=== PATIENT | male | born 1960 | race Caucasian/White ===

== ENCOUNTER → 2019-05-19 | Outpatient (CLI) | payer BC, OTHER ==
--- NOTE | 2019-05-19 16:54 | RAD ---
Examination: 2 views of the lumbar spine and 2 views of the left hip HISTORY: History of low back pain, left hip pain COMPARISON: 06/07/2012 FINDINGS: The lumbar vertebral body heights are maintained. Mild intervertebral disc height loss identified in the lumbar spine. Moderate facet degenerative changes identified. Moderate intervertebral disc height loss identified at L5-S1 vertebral level. Minimal anterolisthesis of L4 on L5 identified. There is severe joint space loss identified in the left hip joint with sclerotic changes identified in the left acetabulum. Mild deformed appearance of the left femoral head. Moderate facet degenerative changes. IMPRESSION: 1. Severe degenerative changes left hip joint. 2. Moderate degenerative changes lumbar spine. Electronically signed by: Francisco Junior MD (05/19/2019 4:51 PM) [facility]
== END | disposition home or self-care (01) ==
LOC: RAD 13:04
PROVIDERS: ATTEND Family Medicine
DX: M16.12 Unilateral primary osteoarthritis, left hip (principal); M47.816 Spondylosis without myelopathy or radiculopathy, lumbar region; M54.40 Lumbago with sciatica, unspecified side
CPT/HCPCS: 72100; 73502

== ENCOUNTER → 2019-10-17 | Outpatient (CLI) | payer BC, OTHER ==
[~2019-10-17] MED LIST: CHOL200078 PO; LISI10TA2 PO; MULT-730 PO; NAPR-600 PO; OMEG10005 PO
[2019-10-17 10:58] LABS: BASO # 0.1 x10^3/uL (0.0-0.2); BASO % 1 % (0-3); EOS # 0.2 x10^3/uL (0.0-0.7); EOS % 2 % (0-3); HEMATOCRIT 40.6 % (39.0-53.0); HEMOGLOBIN 13.5 g/dL (13.0-17.5); LYMPH # 1.4 x10^3/uL (1.0-4.8); LYMPH % 17 % (24-48); MEAN CORPUSCULAR HEMOGLOBIN 32 pg (25-35); MEAN CORPUSCULAR HGB CONC 33 g/dL (31-37); MEAN CORPUSCULAR VOLUME 96 fL (79-100); MONO # 0.9 x10^3/uL (0.0-1.1); MONO % 11 % (0-9); NEUT # 5.4 x10^3/uL (1.8-7.7); NEUT % 69 % (31-73); PLATELET COUNT 332 x10^3/uL (140-400); RED BLOOD COUNT 4.25 x10^6/uL (4.30-5.70); RED CELL DISTRIBUTION WIDTH 13.3 % (11.5-14.5); WHITE BLOOD COUNT 7.9 x10^3/uL (4.0-11.0)
--- NOTE | 2019-10-17 11:08 | EKG ---
[facility] [address] [place] [address] Test Date: 2019-10-17 Test Time: 10:48:04 Pat Name: FATUMA CEDEÑO Department: Room: Gender: M Manager Insurance: : [id number] Requested By: NAOMIE SLATER Order Number: [id number] Reading MD: Wes Bowen Measurements Intervals [place] Rate: 65 P: 34 CA: 170 QRS: 24 QRSD: 90 T: 29 QT: 380 QTc: 396 Interpretive Statements SINUS RHYTHM MILD NONSPECIFIC ST-T WAVE CHANGES. RI6.01 Compared to ECG 05/23/2012 17:08:01 No significant changes Electronically Signed On 10-17-2019 11:54:54 [employer]PA[employer] by Wes Bowen
[2019-10-17 11:12] LABS: PROTHROMBIN TIME PATIENT 13.4 SEC (11.7-14.0)
[2019-10-17 11:15] LABS: CALCIUM 8.7 mg/dL (8.5-10.1); CREATININE 0.9 mg/dL (0.7-1.3); GFR 86.1; POTASSIUM 4.8 mmol/L (3.5-5.1)
--- NOTE | 2019-10-17 12:38 | RAD ---
EXAM: Chest, 2 views. HISTORY: Preoperative evaluation. Pain. COMPARISON: None. FINDINGS: 2 views of the chest are obtained. There is no infiltrate, pleural effusion or pneumothorax. The heart is normal in size. IMPRESSION: No acute pulmonary finding. Electronically signed by: Spring Mata MD (10/17/2019 12:35 PM) [facility] [place]
[2019-10-18 01:08] LABS: HEMOGLOBIN A1C 5.5 % (4.8-5.6)
== END | disposition home or self-care (01) ==
LOC: SURGPAT 09:45
PROVIDERS: ATTEND Orthopaedic Surgery Sports Medicine
DX: Z01.818 Encounter for other preprocedural examination (principal); M16.12 Unilateral primary osteoarthritis, left hip
CPT/HCPCS: 36415; 71046; 80048; 82306; 83036; 85025; 85610; 85651; 85730; 87641; 93005

== ENCOUNTER 2019-10-23 05:48 | Inpatient (IN) | payer BC, OTHER ==
[2019-10-23] VITALS (10 sets, daily range): BP systolic 91–137; BP diastolic 51–67
[~2019-10-23] VITALS: Ht 188 cm; Wt 95.3 kg
[~2019-10-23 05:48] MED LIST changes: -LISI10TA2 PO
[2019-10-23] MEDS ORDERED: MORPHINE SULFATE 5 MG, KETOROLAC 30MG VIAL 30 MG, ROPIVacaine 0.5% PF 60 ML, EPINEPHrin... INT ART ONE ×5 (06:00)
[2019-10-23] MEDS ORDERED: ACETAMINOPHEN 500 MG TABLET PO PRN (06:00)
[2019-10-23] MEDS ORDERED: TRANEXAMIC ACID 1,000 MG in IV NS 50ML -- 1ST BAG INJ ONE (06:00)
[2019-10-23] MEDS ORDERED: GABAPENTIN 300 MG CAPSULE. PO PRN (06:00)
[2019-10-23] MEDS ORDERED: MELOXICAM 7.5 MG TABLET PO PRN (06:00)
[2019-10-23] MEDS ORDERED: LISI10TA2 PO (06:38)
[2019-10-23] MEDS ORDERED: CALCIUM CARBONATE 500 MG TAB.CHEW PO PRN (07:00)
[2019-10-23] MEDS ORDERED: METOCLOPRAMIDE HCL 10 MG/2 ML VIAL. IV PRN (07:00)
[2019-10-23] MEDS ORDERED: PROCHLORPERAZINE 10 MG/2 ML VIAL. IV PRN (07:00)
[2019-10-23] MEDS ORDERED: 0.9 % SODIUM CHLORIDE 10 ML DISP.SYRIN. IV PRN (07:00)
[2019-10-23] MEDS ORDERED: ONDANSETRON PF 4 MG/2 ML VIAL. IV PRN (07:00)
[2019-10-23] MEDS ORDERED: MORPHINE SULFATE 2 MG/ML VIAL. IV PRN (07:00)
[2019-10-23] MEDS ORDERED: PROCHLORPERAZINE 5 MG TABLET. PO PRN (07:00)
[2019-10-23] MEDS ORDERED: diphenhydrAMINE 50 MG/ML VIAL IV PRN (07:00)
[2019-10-23] MEDS ORDERED: IV RINGERS,LACTATED 1000ML 1,000 ML IV SCH (07:00)
[2019-10-23] MEDS ORDERED: HYDROmorphone 2 MG/ML VIAL IV PRN (07:00)
[2019-10-23] MEDS ORDERED: LIDOCAINE 1% PF 2 ML VIAL. ID PRN (07:00)
[2019-10-23] MEDS ORDERED: fentaNYL PF VIAL 100 MCG/2 ML VIAL IV PRN ×3 (07:00)
[2019-10-23] MEDS ORDERED: DEXTROSE 50% 25 GM / 50ML DISP.SYRIN. IV PRN (07:00)
[2019-10-23] MEDS ORDERED: ZOLPIDEM 5 MG TABLET. PO PRN (07:00)
[2019-10-23] MEDS ORDERED: FAMOTIDINE 20 MG/2 ML VIAL ONE (07:12)
[2019-10-23] MEDS ORDERED: PROPOFOL 20 ML IV ONE ×2 (07:12→09:23)
[2019-10-23] MEDS ORDERED: LIDOCAINE 2% PF 5 ML VIAL. ONE (07:12)
[2019-10-23] MEDS ORDERED: ONDANSETRON PF 4 MG/2 ML VIAL. ONE (07:12)
[2019-10-23] MEDS ORDERED: MIDAZOLAM HCL/PF 2 MG/2 ML VIAL. ONE (07:13)
[2019-10-23] MEDS ORDERED: ROCURONIUM 50 MG/5 ML VIAL. ONE (07:13)
[2019-10-23] MEDS ORDERED: fentaNYL PF VIAL 100 MCG/2 ML VIAL ONE ×2 (07:13→09:40)
[2019-10-23] MEDS ORDERED: KETAMINE HCL IN NACL, ISO-OSM 50 MG/5 ML SYRINGE ONE (07:13)
[2019-10-23 07:29] LABS: PROTHROMBIN TIME PATIENT 13.5 SEC (11.7-14.0)
[2019-10-23] MEDS ORDERED: ePHEDrine PF IN SALINE 50 MG/10 ML SYRINGE. IV ONE (07:36)
[2019-10-23] MEDS ORDERED: TRANEXAMIC ACID 1,000 MG in IV NS 50ML -- 2ND BAG INJ ONE (08:00)
[2019-10-23] MEDS ORDERED: NEOSTIGMINE METHYLSULFATE 5 MG/5 ML SYRINGE. ONE (08:45)
[2019-10-23] MEDS ORDERED: GLYCOPYRROLATE 1 MG/5 ML VIAL. ONE (08:45)
[2019-10-23] MEDS ORDERED: SEVOFLURANE > 120 MINUTES. IH ONE (09:15)
--- NOTE | 2019-10-23 09:33 | PDOC4 ---
Operative Note Operative Note Date of procedure: 10/23/2019 Surgeon: Jp Slater Asst.: Boom Dobbins, advanced practice registered nurse who was necessary to assist with manipulating the leg and holding retractors as well as wound closure for this procedure Preoperative diagnosis: Advanced left hip primary degenerative joint disease Postoperative diagnosis: Same Procedure performed: Left total hip arthroplasty Anesthesia: Gen. Findings: Advanced primary degenerative joint disease of left hip. Blood loss: 200 mL Complications: None Components inserted Vasques and nephew 52 mm R3 shell with a 20 posteriorly directed liner, size 6 standard offset anthology stem with a 36+8 cobalt chrome head Reason for procedure: Patient is a very pleasant individual with severe progressive pain interfering with his activities of daily living and attributable to the above preoperative diagnosis. Clinical and radiographic examination were consistent with the above preoperative diagnosis and after discussion of the risks, benefits, and alternatives, taking into account her failure of conservative therapies, the patient elected to proceed with surgery. Description of procedure: Patient was greeted in the preoperative area by myself for the correct extremity was verified and marked. He was taken back to the operative suite and antibiotics were started as they were brought back. Once in the operative room, patient was transferred gently supine to the operating table and secured to the bed with all pressure points padded. Axillary roll was used. The down leg was padded at the fibular head and heel. Patient was secured the bed with our hip positioning devices. I then appreciated leg lengths in this position. After this, the operative extremity was prepped and draped in our usual sterile fashion including an Ioban Cascilla. We then proceeded to conduct our standard preoperative timeout. I then palpated and marked surface anatomy and jeremias a line from my standard posterolateral skin incision. Skin was incised with a scalpel and subcutaneous tissue was dissected down the level of fascia with electrocautery. Bleeders were cauterized as they were encountered. Infante elevator was used to sweep aside adherent subcutaneous tissue for later identification and repair of the fascia. Fascia was then incised in line with the skin incision and the gluteus natalie was split bluntly in line with its fibers. There was abundant fibrotic tissue present and I excised some of this for exposure. After this, a lap was used to push bursal tissue posteriorly to identify the piriformis and quadratus, these were taken down, the piriformis was tagged for later repair. Our self-retaining retractor was in place. At this point, identified the hip capsule incised in a T-type incision, taking ends for later repair. The hip was dislocated. I then palpated and marked with electrocautery areas at the greater and lesser trochanters and center of the femoral head and I made measurements for length and offset. I then jeremias a line on the neck about 1 cm proximal lesser trochanter and made my neck cut through this. The bony remnant was delivered from the operative field. We placed the acetabular retractors and inspected the acetabulum. I excised the soft tissues from the floor the acetabulum as well as the labrum. Osteophytes were taken down posteriorly. After this, we began reaming and reamed down until we encountered a punctate bleeding bony bed. The operative field and then thoroughly irrigated out. The cup was then impacted referencing upper sioux anatomy and the crossbar attachment. I had identified the transverse acetabular ligament. After this, I palpated for the posterior column and greater sciatic notch and referenced this to place a screw into the posterior column. The operative field was irrigated again and my polyethylene liner was then impacted in position and confirmed that it was fully seated on circumferential visualization. We then removed our acetabular retractors and used our proximal femoral elevator and repositioned the leg. I used the dev cutting osteotome followed by canal finding reamer followed by lateralizing reamer. We then began broaching and broached to the above size and trialed different head and necks, using our measurements as a guide as well. The above sizes gave the best range of motion and stability. After this, the trial components were removed and the canal was thoroughly irrigated. I then impacted my femoral stem into position. We then re-trialed the head sizes and selected the above size. The hip was redislocated and the Lr taper region was washed and dried. The femoral head was then gently impacted in position and the acetabulum was inspected and irrigated to make sure was free of debris. After this, the hip was reduced. Excellent range of motion and stability were achieved. I was happy with the leg lengths. We then closed capsule with simple interrupted #2 Ethibond. Piriformis was reapproximated through drill holes. I then injected my periarticular mixture into the mattie-incisional soft tissues below. Fascia was closed was running #2 Quill suture. Inverted interrupted 2-0 Vicryl in a multilayered fashion was used for subcutaneous tissu e and running 3-0 Monocryl for skin. Prior to wound closure, all counts correct 2. No complications. At the conclusion, the hip region was cleansed and dried and our incisional wound vacuum was applied. Patient tolerated surgery well. At the conclusion, they were laid supine and transferred gently supine to the hospital bed and taken to PACU in a stable and extubated condition. Po stoperative plan is to admit the patient to the joint center for DVT and antibiotic prophylaxis as well as to begin the rehabilitation and receive likely IV pain medicine. JP SLATER II, MD Oct 23, 2019 09:33
[2019-10-23] MEDS ORDERED: MORPHINE SULFATE 2 MG/ML VIAL. ONE (09:51)
--- NOTE | 2019-10-23 09:55 | RAD ---
Examination: PELVIS History: Postoperative left hip arthroplasty Comparison/Correlation: 06/13/2019 frontal view of the pelvis Findings: Frontal view of the pelvis and frontal view of the left hip were obtained. Bilateral hip joint prostheses are present. The left hip joint prosthesis was fully included for purposes of this exam but the right hip joint prosthesis was not. Soft tissue gas is noted about the left hip consistent with immediate postoperative status. No evidence of loosening. No fracture or bone destruction. Impression: Soft tissue gas. No fracture, loosening, or bone destruction. Electronically signed by: Herminio Feliz MD (10/23/2019 9:51 AM) [id number]
[2019-10-23] MEDS: MORPHINE SULFATE 2 MG/ML VIAL. IV PRN ×4 (09:56→11:04)
[2019-10-23] MEDS ORDERED: ceFAZolin 2GM PREMIX 2 GM/50 ML BAG IV ONE (12:00)
[2019-10-23] MEDS: ONDANSETRON ODT 4 MG TAB.RAPDIS. PO SCH ×2 (12:00→18:00)
[2019-10-23] MEDS: IV NORMAL SALINE 1000ML BAG 1,000 ML IV SCH (12:10)
[2019-10-23] MEDS: ONDANSETRON PF 4 MG/2 ML VIAL. IV SCH ×2 (12:11→18:00)
[2019-10-23] MEDS: oxyCODONE IR 5 MG TABLET PO PRN ×3 (13:58→22:41)
[2019-10-23] MEDS ORDERED: INFLUENZA VAX SCREEN BY RX. MC PRN (15:00)
[2019-10-23] MEDS ORDERED: FLU VAX QS 2019-20 (36MOS+)/PF 0.5 ML SYRINGE. VAX IM ONE (16:00)
[2019-10-23] MEDS ORDERED: WARFARIN 7.5 MG TABLET. PO ONE (16:00)
[2019-10-23] MEDS: FERROUS SULFATE 325 MG TABLET. PO SCH (16:46)
[2019-10-24] MEDS: IV NORMAL SALINE 1000ML BAG 1,000 ML IV SCH (00:57)
[2019-10-24] MEDS: ONDANSETRON PF 4 MG/2 ML VIAL. IV SCH ×2 (00:57→06:14)
[2019-10-24 04:32] LABS: PROTHROMBIN TIME PATIENT 13.4 SEC (11.7-14.0)
[2019-10-24] MEDS: oxyCODONE IR 5 MG TABLET PO PRN ×4 (04:39→22:07)
[2019-10-24] MEDS ORDERED: MAGNESIUM HYDROXIDE 2,400 MG/30 ML ORAL.SUSP. PO PRN (06:00)
[2019-10-24] MEDS: ONDANSETRON ODT 4 MG TAB.RAPDIS. PO SCH ×2 (06:00)
[2019-10-24] MEDS: traMADol 50 MG TABLET PO SCH ×4 (06:14→23:57)
[2019-10-24 07:00] VITALS: BP 88/43
[2019-10-24 08:00] LABS: HEMATOCRIT 33.1 % (39.0-53.0); HEMOGLOBIN 11.3 g/dL (13.0-17.5)
--- NOTE | 2019-10-24 08:18 | PDOC ---
ORTHO PROGRESS NOTES Subjective He has little pain at rest, his hip does ache in general when he is up and moving. Denies any other complaint or concern. Vitals Vital Signs Date Time Temp Pulse Resp B/P (MAP) Pulse Ox O2 Delivery O2 Flow Rate FiO2 10/24/19 07:50 96 Nasal Cannula 2.0 10/24/19 06:14 20 10/23/19 22:43 96.8 68 134/56 (82) 96.8 Labs Laboratory Tests Test 10/23/19 06:50 10/24/19 04:06 Prothrombin Time 13.5 SEC (11.7-14.0) 13.4 SEC (11.7-14.0) Prothromb Time International Ratio 1.1 (0.8-1.1) 1.1 (0.8-1.1) Activated Partial Thromboplast Time 31 SEC (24-38) Hemoglobin 11.3 g/dL (13.0-17.5) Hematocrit 33.1 % (39.0-53.0) Mean Corpuscular Hemoglobin Concent 34 g/dL (31-37) Laboratory Tests Test 10/24/19 04:06 Hemoglobin 11.3 g/dL (13.0-17.5) Hematocrit 33.1 % (39.0-53.0) Mean Corpuscular Hemoglobin Concent 34 g/dL (31-37) Prothrombin Time 13.4 SEC (11.7-14.0) Prothromb Time International Ratio 1.1 (0.8-1.1) Notes He is awake and alert in bed. Dressing is intact. Normal motor and sensation are present in his left lower extremity Assessment and Plan PT and OT, Coumadin. We will continue to monitor his pain. NAOMIE SLATER II, MD Oct 24, 2019 08:18
[2019-10-24] MEDS: ACETAMINOPHEN 500 MG TABLET PO SCH ×3 (08:29→20:50)
[2019-10-24] MEDS: CHOLECALCIFEROL (VITAMIN D3) 1,000 UNIT TABLET PO SCH (08:29)
[2019-10-24] MEDS: SENNOSIDES/DOCUSATE 8.6/50MG TABLET. PO SCH (08:29)
[2019-10-24] MEDS: FERROUS SULFATE 325 MG TABLET. PO SCH ×2 (08:29→16:49)
[2019-10-24] MEDS: MULTIVITAMIN with MINERAL TABLET. PO SCH (08:31)
[2019-10-24] MEDS: MELOXICAM 7.5 MG TABLET PO SCH (08:31)
[2019-10-24] MEDS: LISINOPRIL 10 MG TABLET PO SCH (09:00)
--- NOTE | 2019-10-24 10:33 | NUR ---
Pharmacy Warfarin Dosing Note S:Pharmacy consulted to assist with anticoagulation therapy started 10/23/19 with target INR: 1.6 - 2.5 O:FATUMA CEDEÑO is a 59 year old M with JANNETH LABS: Last INR: 1.1 Last HGB: 11.3 Last HCT: 33.1 Last PLT: Last dose of 7.5 mg given on 10/23/19 at 1646 Previous Regimen: Vitamin K given: N Drug Interaction Changes: Ongoing Drug Interactions: A:INR of 1.1 is [g RX.ACOAG] desired range. Target range for this patient is: 1.6 - 2.5 P: Warfarin dose: 5 mg [g ACOAG.TIME] Bridge Therapy: None Next [g ACOAG.LABS] due [] Pharmacy anticoagulation service will continue to follow. Luis De La Garza [facility], 10/24/19 [id number]
[2019-10-24 11:00] VITALS: BP 99/52
[2019-10-24] MEDS ORDERED: ONDANSETRON ODT 4 MG TAB.RAPDIS. PO PRN (12:00)
[2019-10-24] MEDS ORDERED: ONDANSETRON PF 4 MG/2 ML VIAL. IV PRN (12:00)
[2019-10-24] MEDS ORDERED: WARFARIN 5 MG TABLET. PO ONE (16:00)
[2019-10-24] MEDS ORDERED: BISACODYL 10 MG SUPP.RECT. PR PRN (16:00)
[2019-10-24 18:23] VITALS: BP 92/54
[2019-10-25] MEDS: ACETAMINOPHEN 500 MG TABLET PO SCH ×2 (03:04→07:58)
[2019-10-25] MEDS: oxyCODONE IR 5 MG TABLET PO PRN ×2 (04:00→09:00)
[2019-10-25] MEDS: traMADol 50 MG TABLET PO SCH ×2 (06:03→12:39)
[2019-10-25 06:29] VITALS: BP 111/74
--- NOTE | 2019-10-25 07:16 | PDOC ---
ORTHO PROGRESS NOTES Subjective Patient says that he has moderate pain but tolerable. Post-op Day: 2 Procedure L JANNETH Vitals Vital Signs Date Time Temp Pulse Resp B/P (MAP) Pulse Ox O2 Delivery O2 Flow Rate FiO2 10/25/19 06:56 18 Room Air 10/25/19 06:29 98.2 68 111/74 (86) 95 98.2 10/24/19 13:44 2.0 Labs Laboratory Tests Test 10/24/19 04:06 Hemoglobin 11.3 g/dL (13.0-17.5) Hematocrit 33.1 % (39.0-53.0) Mean Corpuscular Hemoglobin Concent 34 g/dL (31-37) Prothrombin Time 13.4 SEC (11.7-14.0) Prothromb Time International Ratio 1.1 (0.8-1.1) Notes Awakened easily Assessment and Plan POD # 2 S/P L JANNETH motor and sensation intact distally LLE dressing dry and intact calf soft and nontender PT/OT and discharge planning DINESH KINSEY APRN Oct 25, 2019 07:16
[2019-10-25] MEDS: MULTIVITAMIN with MINERAL TABLET. PO SCH (07:57)
[2019-10-25] MEDS: MELOXICAM 7.5 MG TABLET PO SCH (07:58)
[2019-10-25] MEDS: LISINOPRIL 10 MG TABLET PO SCH (07:58)
[2019-10-25] MEDS: CHOLECALCIFEROL (VITAMIN D3) 1,000 UNIT TABLET PO SCH (07:58)
[2019-10-25] MEDS: FERROUS SULFATE 325 MG TABLET. PO SCH (07:58)
[2019-10-25] MEDS: SENNOSIDES/DOCUSATE 8.6/50MG TABLET. PO SCH (07:59)
[2019-10-25 08:26] LABS: HEMATOCRIT 34.5 % (39.0-53.0); HEMOGLOBIN 11.7 g/dL (13.0-17.5)
[2019-10-25 08:38] LABS: PROTHROMBIN TIME PATIENT 14.1 SEC (11.7-14.0)
--- NOTE | 2019-10-25 12:05 | DISCH ---
DISCHARGE INSTRUCTIONS Condition on Discharge Condition on Discharge: Stable Activity After Discharge Activity Instructions for Disc: Activity as tolerated Bathing Instructions: Shower-keep dressing dry Driving Instructions after Dis: Do not drive Weight Bearing Status after Di: As tolerated Diet after Discharge Diet after Discharge: Regular Wound Incision Care Wound/Incision Care: Ice to area for comfort, Keep wound/cast CDI, Do not change dressing Contacting the DRAryan after DC Call your doctor for: Concerns you may have Follow-Up Follow up with: Darshana in 2 wks Follow Up With: Outpatient PT 10/27 Warfarin Follow-Up Warfarin Follow UP: per Pharmacy NAOMIE SLATER II, MD Oct 25, 2019 12:05
[2019-10-25 12:38] VITALS: BP 113/74
--- NOTE | 2019-10-25 15:00 | NUR ---
Pharmacy Warfarin Dosing Note S: Pharmacy consulted to assist with anticoagulation therapy started 10/23/19 O: FATUMA CEDEÑO is a 59 year old M with JANNETH LABS: Last INR: 1.1 Last HGB: 11.7 Last HCT: 34.5 Last PLT: - Last dose of 5 mg given on 10/23/19 at 1540 Vitamin K given: N Ongoing Drug Interactions: meloxicam A:INR of 1.1 is below desired range. Target range for this patient is: 1.6 - 2.5 P: Warfarin dose: 7.5 mg Today at 1600 Bridge Therapy: None Next INR due 10/26/19 Pharmacy anticoagulation service will continue to follow. GHASSAN MUELLER [facility], 10/25/19 [id number]
--- NOTE | 2019-10-25 15:07 | PATHOLOGY ---
[facility] Accession Number: [id number] . 01 Material submitted: . hip - FEMORAL HEAD. Modifiers: left . 01 Clinical history: . Osteoarthritis . 02 Diagnosis: Femoral head, left total hip arthroplasty: - Advanced degenerative arthritis. (JPM:nathalie; 10/25/2019) MBR 10/25/2019 1206 Local . 02 Electronically signed: . Quan Valdovinos MD, Pathologist NPI- [id number] . 01 Gross description: . The specimen is received in formalin, labeled "Dale Psoadas, femoral head". The site is further designated in the operative procedure as, "left hip". Received is a femoral head with attached femoral neck measuring 4.7 x 4.7 x 5.2 cm in greatest mentions. The articular surface is smooth to irregular in contour with evidence of eburnation, as well as osteophytic lipping. Sectioning reveals yellow-marroquin cut surfaces throughout with no gross nodules or lesions. The specimen is submitted representatively in cassette A1, following decalcification. ([facility]; 10/24/2019) QA/QA 10/25/2019 1205 Local . 02 Pathologist provided ICD-10: M16.12 . 02 CPT . 090372, [id number] Specimen Comment: A courtesy copy of this report has been sent to [phone], [phone] Specimen Comment: [id number] Specimen Comment: Report sent to / DR HDZ Performed at: 01 [facility] [address], [place], [place] [id number] MD Jose Miguel Mccracken MD Phone: [phone] Performed at: 02 [facility] [address] [place], [place] [id number] MD Quan Valdovinos MD Phone: [phone]
[2019-10-25] MEDS ORDERED: WARFARIN 7.5 MG TABLET. PO ONE (16:00)
[2019-10-25 17:20] VITALS: BP 125/72
--- NOTE | 2019-10-25 17:40 | NUR ---
Pt wanted to go home today. Discharge instructions given with prescription. Answered questions and concerns. Verbalized understanding. Pt discharged home accompanied by spouse.
--- NOTE | 2019-10-26 08:58 | PDOC3 ---
Discharge Summary Visit Information Date of Admission: Oct 23, 2019 Date of Discharge: Oct 25, 2019 Admitting Diagnosis: advanced left hip primary degenerative joint disease Brief Hospital Course Allergies Allergies Coded Allergies Type Severity Reaction Last Updated Verified No Known Drug Allergies 10/23/19 No Vital Signs Vital Signs Date Time Temp Pulse Resp B/P (MAP) Pulse Ox O2 Delivery O2 Flow Rate FiO2 10/25/19 17:20 96.5 89 125/72 (89) 97 Room Air 2.0 96.5 Lab Results Laboratory Tests Test 10/25/19 07:50 Hemoglobin 11.7 g/dL (13.0-17.5) Hematocrit 34.5 % (39.0-53.0) Mean Corpuscular Hemoglobin Concent 34 g/dL (31-37) Prothrombin Time 14.1 SEC (11.7-14.0) Prothromb Time International Ratio 1.1 (0.8-1.1) Brief Hospital Course Mr. Posadas is a 59 old male who presented to my outpatient orthopedic surgery clinic with complaints of severe and progressive pain that failed conservative therapies including injections. We had a discussion of the risks, benefits, alternatives to total hip arthroplasty and he elected to proceed. He tolerated surgery well cover well from anesthesia in the PACU. He was then taken to the joint Center for care and observation. He did receive PT, OT, DVT and antibiotic prophylaxis. He recovered well from surgery and remained hemodynamically stable and afebrile throughout the hospitalization. Pain was controlled on oral pain medicine at the time of discharge. Good progress was made with therapy throughout the hospitalization, and activities of daily living were accomplished by the patient. The incision was clean dry and intact and the operative extremity had normal motor and sensation. Discharge Information Condition at Discharge: Stable Follow Up: Weeks Disposition/Orders: D/C to Home Scheduled Cholecalciferol (Vitamin D3) (Vitamin D3) 2,000 Unit Tab.chew, 1 TAB PO DAILY for SUPPLEMENT for 30 Days, #30 Ref 0 (Reported) Entered as Reported by: CHRISTINA LAMB on 10/17/19 1135 Last Action: Converted on 10/23/19 0658 by SUPA SLATER MD Lisinopril (Lisinopril) 10 Mg Tablet, 10 MG PO DAILY for FOR HYPERTENSION, #30 Ref 0 (Reported) Entered as Reported by: SAVANA MAJANO on 10/23/19 0638 Last Taken: Unknown Dose on 10/23/19 0410 Last Action: Continued on 10/23/19657 by SUPA SLATER MD Multivit-Min/Folic/Vit K/Lycop (Men's Multivitamin Tablet) 1 Each Tablet, 1 EACH PO DAILY for SUPPLEMENT, (Reported) Entered as Reported by: CRHISTINA LAMB on 10/17/19 1134 Last Action: HELD on 10/23/19657 by SUPA SLATER MD Naproxen Sodium (Naproxen Sodium Cr) 375 Mg Tbmp.24hr, 1 TAB PO BID for HIP PAIN for 30 Days, #60 Ref 0 (Reported) Entered as Reported by: CHRISTINA LAMB on 10/17/19 1012 Last Taken: Unknown Dose on 10/16/19 Last Action: HELD on 10/23/19657 by SUPA SLATER MD Discontinued Medications [place]-3 Fatty Acids ([place]-3) 1,000 Mg Capsule, 1,000 MG PO DAILY for SUPPLEMENT, (Reported) Entered as Reported by: CHRISTINA LAMB on 10/17/19 1133 Last Action: HELD on 10/23/19657 by SUPA SLATER MD Patient Instructions Patient Instructions He will be discharged home. He will start outpatient physical therapy this week. The patient will be on Coumadin for a month. He can weight-bear as tolerated. Worrisome signs and symptoms that should prompt a phone call to my office were discussed. We'll see him back in 2 weeks, sooner should a problem arise. NAOMIE SLATER II, MD Oct 26, 2019 08:57
== END 2019-10-25 17:40 | disposition home or self-care (01) | DRG 470 ==
LOC: SURG 05:48 → 4 NORTH 10:55 → OBSVTOIN 10-24 09:54 → 4 SOUTHEST 10-24 14:30
PROVIDERS: ADMIT Orthopaedic Surgery Sports Medicine; ATTEND Orthopaedic Surgery Sports Medicine
PROC: 0SRB0JZ Replacement of Left Hip Joint with Synthetic Substitute, Open Approach (ICD-10-PCS; principal; 2019-10-24)
DX: M16.12 Unilateral primary osteoarthritis, left hip (principal)
CPT/HCPCS: 36415; 72170; 85014; 85018; 85610; 85730; 86850; 86900; 86901; 88304; 88311; 90471; 90686; A7015; C1713; G0378; G0379; J0171; J0696; J1885; J2001; J2250; J2270; J2405; J2704; J2710; J2795; J3010; J3490; J7030; Q0162; 97110; 97116; 97150; 97530; 97535

== ENCOUNTER → 2020-09-18 | Outpatient (CLI) | payer OTHER ==
[~2020-09-18] MED LIST changes: +LISI10TA2 PO
--- NOTE | 2020-09-18 15:32 | RAD ---
EXAM: Right lower extremity arterial Doppler sonogram with ankle-brachial indices (CHEMA). HISTORY: Nonhealing wound. TECHNIQUE: Doppler sonographic evaluation of the lower extremities was performed and pressure reading s were assessed. FINDINGS: Right brachial pressure: 147 mmHg Right ankle pressure: 121 mmHg Right CHEMA: 0.80 There is an elevated peak systolic velocity within the right common femoral artery, measuring 164 cm/ s. There is also a severely elevated peak systolic velocity of 367 cm/s within the distal right super ficial femoral artery and mild elevated peak systolic velocity within the mid right superficial femor al artery, measuring 170 cm/s. There are monophasic waveforms throughout the right lower extremity ar teries, with exception of a biphasic waveform within the deep femoral artery. The right peroneal maycol ry is not seen. IMPRESSION: 1. Severely elevated peak systolic velocity within the distal right superficial femoral artery, consi stent with hemodynamically significant stenosis. There are also elevated peak systolic velocities wit hin the common femoral and mid superficial femoral artery which favor stenosis. 2. Abnormal monophasic waveforms throughout the right lower extremity arteries, with exception of the deep femoral artery. This consistent with hemodynamically significant proximal stenosis. 3. Nonvisualization of the right peroneal artery. This may be due to imaging technique, small caliber or occlusion. 4. Abnormal decreased right ankle-brachial index of 0.80, consistent with mild to moderate peripheral vascular disease. Electronically signed by: Spring Mata MD (09/18/2020 3:29 PM) [id number]
== END ==
LOC: US 14:11
PROVIDERS: ATTEND Emergency Medicine Undersea and Hyperbaric Medicine
DX: S81.801D Unspecified open wound, right lower leg, subsequent encounter (principal); I70.201 Unspecified atherosclerosis of native arteries of extremities, right leg; X58.XXXD Exposure to other specified factors, subsequent encounter
CPT/HCPCS: 93922; 93926

== ENCOUNTER → 2020-09-30 | Outpatient (CLI) | payer OTHER ==
[~2020-09-30] MED LIST changes: +CONTRAST GIVEN. MC PRN; +IOHEXOL 350 MG/ML 100 ML VIAL. IV ONE; +LISI10TA16 PO; -LISI10TA2 PO
--- NOTE | 2020-09-30 17:33 | RAD ---
PQRS Compliance Statement: One or more of the following individualized dose reduction techniques were utilized for this examinat ion: 1. Automated exposure control 2. Adjustment of the mA and/or kV according to patient size 3. Use of iterative reconstruction technique CTA AORTA/RUNOFF W/WO +POST 09/30/2020 7:48 AM Indication: Severe peripheral vascular disease. Foot wound. COMPARISON: None available. TECHNIQUE: Multiple axial CT angiographic images of the abdomen, pelvis and bilateral lower extremiti es were obtained after intravenous administration 95 cc Omnipaque 350. Coronal and sagittal reformats are provided. Maximum intensity projection images are provided. FINDINGS: Patchy groundglass changes are identified at the lung bases. Bronchial wall thickening compatible wit h nonspecific bronchitis. Heart size is within normal limits. Three-vessel coronary artery vascular c alcifications are present. Liver, spleen, left adrenal gland, pancreas and gallbladder are normal in appearance. Right adrenal gland demonstrates fusiform thickening of the lateral limb of the adrenal g land. This may reflect adenomatous hyperplasia. No pathologically enlarged lymph nodes are identified in abdomen and pelvis. There is no free fluid or free intraperitoneal air. There is a small fat-cont aining right inguinal hernia. Mild circumferential wall thickening involving the proximal sigmoid col on with adjacent fascial thickening. Consideration may be given for mild diverticulitis. There is mil d diverticulosis. Appendix is normal. No bowel obstruction or inflammation. The kidneys enhance symme trically. There is no suspicious renal mass. There is no hydronephrosis. There are no suspected calcu li within the kidneys, ureters or urinary bladder. Small amount of gas identified within the urinary bladder. Prostate and seminal vesicles are normal. Bilateral total hip arthroplasty changes are prese nt. No suspicious osseous abnormality is identified. Vascular findings: Abdominal aorta with aortic hiatus measures 2.0 x 2.1 cm. Noncalcified atheromatou s plaque is identified at the proximal superior mesenteric artery with mild stenosis. Calcified nonca lcified atheromatous plaque is identified at the origin of the celiac axis with mild stenosis. There is calcified and noncalcified atheromatous plaque at the origin of the right renal artery with modera te stenosis. There is calcified and noncalcified atheromatous plaque at the origin the left renal art enrico with moderate stenosis. Infrarenal abdominal aorta measures 1.7 x 1.7 cm with dense calcified ath eromatous plaque. Inferior mesenteric artery is widely patent. Calcified noncalcified atheromatous pl aque is identified involving the common carotid arteries bilaterally with mild focal stenosis at the origin of the right external iliac artery. Moderate irregularity identified involving the internal il iac arteries bilaterally. Mild focal stenosis of the origin of the left external iliac artery. Right: Common femoral artery: Normal in course and caliber. Profunda: Normal in course and caliber. Superficial femoral artery: There is moderate irregularity of the distal superficial femoral artery w ith moderate to severe focal stenosis measuring 2 cm in length (series 6, image 867). Popliteal artery: Moderate irregularity of the proximal popliteal artery. Mild irregularity at the di stal popliteal artery with mild focal stenosis. Peroneal artery: Normal in course and caliber. Anterior tibial artery: Normal in course and caliber. Posterior tibial artery: Normal in course and caliber. Left: Common femoral artery: Normal in course and caliber. Profunda: Normal in course and caliber. Superficial femoral artery: Mild irregularity of the distal left superficial femoral artery with mild multifocal stenosis. Popliteal artery: Mild irregularity of the proximal left popliteal artery. There is noncalcified athe romatous plaque resulting in mild focal stenosis of the proximal left popliteal artery (series 6, michelle ge 1007). Peroneal artery: Normal in course and caliber. Anterior tibial artery: Normal in course and caliber. Posterior tibial artery: Moderately irregular with calcified atheromatous plaque. IMPRESSION: 1. Circumferential wall thickening with adjacent fascial thickening involving the proximal sigmoid co humberto with diverticulosis suggestive of mild diverticulitis. No perforation. 2. Mild to moderate peripheral vascular disease with 2 cm segment moderate irregularity of the distal right superficial femoral artery with moderate to severe multifocal stenosis. 3. Nonspecific bronchitis with patchy groundglass changes at the lung bases which could represent pne umonitis versus areas of atelectasis. 4. Fusiform thickening of the lateral limb of the right adrenal gland may reflect adenomatous hyperpl heriberto. Electronically signed by: Phuong Pandya MD (09/30/2020 5:31 PM) [id number]
== END ==
LOC: CT 10:19
PROVIDERS: ATTEND Surgery
DX: I73.9 Peripheral vascular disease, unspecified (principal); I25.10 Atherosclerotic heart disease of native coronary artery without angina pectoris; E27.8 Other specified disorders of adrenal gland
CPT/HCPCS: 75635; Q9967

== ENCOUNTER 2020-10-07 07:48 | Outpatient (CLI) | payer OTHER ==
[~2020-10-07] VITALS: Ht 188 cm; Wt 108.9 kg
[2020-10-07] VITALS (15 sets, daily range): BP systolic 110–180; BP diastolic 52–89
[~2020-10-07 07:48] MED LIST changes: -CONTRAST GIVEN. MC PRN; -IOHEXOL 350 MG/ML 100 ML VIAL. IV ONE
[2020-10-07 08:29] LABS: BASO # 0.1 x10^3/uL (0.0-0.2); BASO % 1 % (0-3); EOS # 0.3 x10^3/uL (0.0-0.7); EOS % 3 % (0-3); HEMATOCRIT 43.6 % (39.0-53.0); HEMOGLOBIN 15.4 g/dL (13.0-17.5); LYMPH # 1.5 x10^3/uL (1.0-4.8); LYMPH % 14 % (24-48); MEAN CORPUSCULAR HEMOGLOBIN 35 pg (25-35); MEAN CORPUSCULAR HGB CONC 35 g/dL (31-37); MEAN CORPUSCULAR VOLUME 98 fL (79-100); MONO # 1.3 x10^3/uL (0.0-1.1); MONO % 12 % (0-9); NEUT # 7.3 x10^3/uL (1.8-7.7); NEUT % 70 % (31-73); PLATELET COUNT 325 x10^3/uL (140-400); RED BLOOD COUNT 4.47 x10^6/uL (4.30-5.70); RED CELL DISTRIBUTION WIDTH 14.1 % (11.5-14.5); WHITE BLOOD COUNT 10.4 x10^3/uL (4.0-11.0)
[2020-10-07 08:38] LABS: CALCIUM 9.1 mg/dL (8.5-10.1); CREATININE 0.9 mg/dL (0.7-1.3); GFR 85.8; POTASSIUM 4.2 mmol/L (3.5-5.1)
[2020-10-07 08:42] LABS: PROTHROMBIN TIME PATIENT 13.3 SEC (11.7-14.0)
[2020-10-07] MEDS ORDERED: LIDOCAINE WITH 8.4% SOD BICARB 3 ML DISP.SYRIN. ONE (08:52)
[2020-10-07] MEDS ORDERED: IODIXANOL 320 MG/ML 100 ML VIAL. ONE (08:53)
[2020-10-07] MEDS ORDERED: HEPARIN for ARTERIAL LINE 1,500 ML ONE (08:53)
[2020-10-07] MEDS ORDERED: fentaNYL PF VIAL 250 MCG/5 ML VIAL ONE (08:57)
[2020-10-07] MEDS ORDERED: HEPARIN for IV BOLUS 10,000 UNIT/10 ML VIAL. ONE (08:57)
[2020-10-07] MEDS ORDERED: MIDAZOLAM HCL/PF 5 MG/5 ML VIAL. ONE (08:57)
[2020-10-07] MEDS ORDERED: LIDOCAINE WITH 8.4% SOD BICARB 3 ML DISP.SYRIN. IJ ONE (09:15)
[2020-10-07] MEDS ORDERED: MIDAZOLAM HCL/PF 5 MG/5 ML VIAL. IV ONE (09:15)
[2020-10-07] MEDS ORDERED: IODIXANOL 320 MG/ML 100 ML VIAL. IART ONE (09:15)
[2020-10-07] MEDS ORDERED: fentaNYL PF VIAL 250 MCG/5 ML VIAL IV ONE (09:15)
[2020-10-07] MEDS ORDERED: HEPARIN for IV BOLUS 10,000 UNIT/10 ML VIAL. IV ONE (09:45)
[2020-10-07] MEDS ORDERED: CLOPIDOGREL BISULFATE 75 MG TABLET PO ONE (10:15)
[2020-10-07] MEDS ORDERED: hydrALAZINE 20 MG/ML VIAL. ONE (10:19)
[2020-10-07] MEDS ORDERED: CLOPIDOGREL BISULFATE 75 MG TABLET ONE ×2 (10:34)
[2020-10-07] MEDS ORDERED: hydrALAZINE 20 MG/ML VIAL. IVP ONE (10:45)
--- NOTE | 2020-10-07 10:46 | PDOC ---
MODERATE SEDATION ASSESSMENT RISKS/ALTERNATIVES Risks/Alternatives Risks and alternatives of this type of sedation and procedure discussed with: RISK/ALTERNATIVES: Patient H & P ON CHART H & P H & P on chart and reviewed for co-morbid conditions and appropriate labs. H&P ON CHART: Yes STATUS PREG STATUS ASSESSED: Yes MEDS/ALLERGIES REVIEWED Meds/Allergies Reviewed Medications and Allergies including time and route of recently administered narcotics and sedatives. MEDS/ALLERGIES REVIEWED: Yes ASA RATING ASA RATING: II AIRWAY ASSESSMENT Airway Assessment Airway patency, oral function limitations, presence of caps, crowns, dentures, partials, and ability to extend neck assessed. AIRWAY ASSESSMENT: Yes MALLAMPATI SCORE MALLAMPATI SCORE: II PRE-SEDATION ASSESSMENT PRE-SEDATION ASSESSMENT: Yes XIN NAVARRETE MD Oct 07, 2020 10:46
--- NOTE | 2020-10-07 10:46 | PDOC ---
Exam Assembly Machine Set Up Mechanic Assembly Machine Set Up Mechanic Stephanie Real Estate Financial Analyst Real Estate Financial Analyst Allison Pre-Procedure Diagnosis Pre-Procedure Diagnosis RLE wound, pvd Post-Procedure Diagnosis Post-Procedure Diagnosis same plus high grade stenosis r sfa, treated with DCBA Procedure Performed Procedure Performed RLE angio R SFA DCBA Type of Anesthesia Type of Anesthesia Mod Sed Estimated Blood Loss EBL: 15 Specimens Specimans None Drain/Tubes Drains/Tubes None Condition of Patient Condition of Patient Stable Disposition Disposition [facility]t [facility] XIN NAVARRETE MD Oct 07, 2020 10:45
[2020-10-07] MEDS ORDERED: LIDOCAINE 2%/EPI 1:100,000 20 ML VIAL. ONE (10:48)
[2020-10-07] MEDS ORDERED: LIDOCAINE 2%/EPI 1:100,000 20 ML VIAL. INJ ONE (11:00)
--- NOTE | 2020-10-07 11:09 | RAD ---
10/07/2020 9:02 AM Procedure: 1. Right lower extremity angiography 2. Drug coated balloon angioplasty, high-grade stenosis mid right SFA Clinical Indication: Right superficial femoral artery stenosis. Right lower extremity wound. Discussion: The procedure was explained in its entirety to the patient or the patients designated direct sales representative by a member of the treatment team, including a discussion of the risks, benefits and commonly accepted alternatives to the procedure, as well as the expected consequences of no therapy whatsoever. Discussion of the risks included, but was not limited to, those that are most frequent and those that are rare but possibly severe or life-threatening, as well as the possibility of unforeseen complications. All elements of maximal sterile barrier technique including the use of a cap, mask, sterile gown, sterile gloves, large sterile sheet, appropriate hand hygiene, and 2% chlorhexidine for cutaneous antisepsis (or acceptable alternative antiseptic per current guidelines) were followed for this procedure. Left groin was prepped and draped using sterile barrier technique as described. 1% lidocaine was administered for local anesthesia. Using a combination of ultrasound and fluoroscopic guidance the left common femoral artery was accessed using micropuncture technique. Ultrasound images were saved medical record. A 5 Yi vascular sheath was placed. An Omni flush catheter was used to cross the aortic bifurcation. The catheter was positioned in the common femoral artery. Angiography was performed demonstrating patent common femoral artery, profunda, and proximal SFA. The catheter was repositioned in the superficial femoral artery. Right lower extremity angiography was again performed demonstrating high-grade stenosis of the more distal SFA just above the adductor canal. The more distal SFA is patent. Popliteal arteries patent. There is three-vessel runoff. Hyperemia is noted in the anterior leg surrounding the patient's wound. The stenotic lesion was traversed. Drug coated balloon angioplasty was performed with a 5 mm balloon. Following this repeat angiography demonstrated excellent vessel morphology. The sheath was removed. A minx closure device was placed. Manual pressure was held. No immediate complications were identified. Total fluoroscopy time: 8.7 min Dose area product: 102 Gycm2 The procedures performed under conscious sedation including continuous cardiopulmonary monitoring via dedicated sedation nurse. [id number] sedation time: 90 minutes Impression: 1.High-grade stenosis of the distal right superficial femoral artery successfully treated with drug coated balloon angioplasty. 2. No other significant femoropopliteal stenosis. Intact Three-vessel runoff.
--- NOTE | 2020-10-07 13:10 | NUR ---
At 1255 patient sat up in bed at 30 degrees, per MD order. No bleeding or increased pain noted at this time. Will continue to monitor.
--- NOTE | 2020-10-07 13:24 | NUR ---
RN spoke w/ wound care regarding patient's appt he had scheduled for [address] Brewster wound like patient to reschedule for next week. RN notified patient and his , stated they would do so.
[2020-10-07] MEDS ORDERED: CLOP75TA PO (14:16)
--- NOTE | 2020-10-07 14:56 | NUR ---
PIV removed. Patient able to ambulated on unit, use restroom. No increased pain, no bleeding at site. Pulses palpable. Instructions provided on site care, sedation, PVD. Verbalized understanding. Plavix 75mg daily called in to [facility], per patient request. Aware of new prescription, education provided. VS WNL. All belongings taken w/ patient at time of d/c. Patient escorted to vehicle, driven home by . Written work release form for tomorrow 10/07/20 provided.
== END 2020-10-07 15:10 | disposition home or self-care (01) ==
LOC: INTRAD 07:48
PROVIDERS: ATTEND Surgery
DX: I73.9 Peripheral vascular disease, unspecified (principal); I70.8 Atherosclerosis of other arteries; I10 Essential (primary) hypertension; G47.30 Sleep apnea, unspecified; M19.90 Unspecified osteoarthritis, unspecified site; F17.210 Nicotine dependence, cigarettes, uncomplicated; Z79.899 Other long term (current) drug therapy; Z98.890 Other specified postprocedural states; Z72.89 Other problems related to lifestyle; Z20.822 Contact with and (suspected) exposure to COVID-19
CPT/HCPCS: 36415; 37224; 75710; 76937; 80048; 85025; 85610; 87426; 99152; 99153; C1760; C1769; C1892; C1894; C2623; C9803; J0360; J1644; J2250; J3010; J3490; Q9967; U0003; G0269

== ENCOUNTER → 2020-12-23 | Outpatient (CLI) | payer OTHER ==
[2020-10-07 14:55] VITALS: BP 156/74
[~2020-12-23] MED LIST changes: +CLOP75TA PO
--- NOTE | 2020-12-23 09:44 | RAD ---
EXAM: Right lower extremity venous reflux sonogram. HISTORY: Nonhealing wounds. TECHNIQUE: Sonographic imaging of the right lower extremity with spectral waveform analysis was perfo rmed. COMPARISON: None. FINDINGS: The right greater saphenous vein measures 8.3 mm in caliber and demonstrates 2.7 seconds of reflux within the proximal thigh, 7.9 mm in caliber with 2.7 seconds of reflux within the mid thigh, 7.1 mm in caliber with reflux of 2.3 seconds within the distal thigh, 4.5 mm in caliber with reflux of 1.9 seconds within the proximal calf, 3.3 mm in caliber with reflux of 3.8 seconds within the mid calf and 2.8 mm caliber with reflux of 1.2 seconds at the level of the ankle. There is a beater operator w ithin the mid calf measuring 23 centers of with a caliber of 4.4 mm and reflux of 1.6 seconds. There is no significant reflux within the right lesser saphenous vein. There is a wound within the lateral lower right calf. There is a varicose vein extending to the wound which measures 3.4 mm caliber with reflux of 1.4 seconds. IMPRESSION: 1. Right greater saphenous vein reflux throughout the right lower extremity, with measurements descri bed above. 2. No evidence of right lesser saphenous vein reflux. 3. Right calf varicose vein extending to the medial aspect of the lateral right lower extremity wound , described above. 4. Calf venous beater operator with associated reflux, described above. Electronically signed by: Spring Mata MD (12/23/2020 9:42 AM) [id number]
== END ==
LOC: US 07:38
PROVIDERS: ATTEND Preventive Medicine Undersea and Hyperbaric Medicine
DX: L97.215 Non-pressure chronic ulcer of right calf with muscle involvement without evidence of necrosis (principal); I86.8 Varicose veins of other specified sites
CPT/HCPCS: 93970

== ENCOUNTER → 2021-01-20 | Outpatient (CLI) | payer OTHER ==
[2020-10-07 14:55] VITALS: BP 156/74
--- NOTE | 2021-01-21 08:29 | RAD ---
MR#: [id number] Date of Study: 01/20/2021 Ordering Physician: REJI GR, Referring Physician: REJI GR, Tech: Camille Graff RDMS, HAYDERT, RTR APPROVED REPORT Patient Location : OUT-PATIENT Indications Stasis Disease Venous Ulcers Skin Changes Greater Saphenous Veins (GSV) Significant venous relux noted in the LEFT GSV at the following levels : Superficial Femoral Junction , Proximal Thigh, Mid Thigh, Distal Thigh, Proximal Calf, Mid Calf, Distal Calf Findings Grayscale images of the left saphenofemoral junction are grossly unremarkable. The left great saphen ous vein measures approximately 5.5 mm. There is significant reflux of more than 3 seconds from the common femoral segment to the below-knee segment. The left lesser saphenous vein does not reveal any evidence of reflux. Critical Notification Critical Value: No <Conclusion> 1. Significant reflux in the left greater saphenous vein. Signed by : Gilbert Maciel, Electronically Approved : 01/21/2021 08:28:50
--- NOTE | 2021-01-21 11:00 | CARD ---
MR#: [id number] Date of Study: 01/20/2021 Ordering Physician: REJI GR, Referring Physician: REJI GR Tech: Katia Lawson [facility] APPROVED REPORT EXAM: Two-dimensional and M-mode echocardiogram with Doppler and color Doppler. Other Information Quality : FairHR: 84bpm Rhythm : NSRTechnically limited study due to body habitus and smoking. INDICATION Dyspnea RISK FACTORS Hypertension Obesity Smoking 2D DIMENSIONS RVDd4.2 (2.9-3.5cm)Left Atrium(2D)3.7 (1.6-4.0cm) IVSd1.4 (0.7-1.1cm)Aortic Root(2D)4.4 (2.0-3.7cm) LVDd4.1 (3.9-5.9cm)LVOT Diameter2.5 (1.8-2.4cm) PWd1.3 (0.7-1.1cm)LVDs3.0 (2.5-4.0cm) FS (%) 26.9 %SV40.3 ml LVEF(%)52.9 (>50%) Aortic Valve AoV Peak Jef.148.8cm/sAoV VTI35.2cm AO Peak GR.8.9mmHgLVOT Peak Jef.106.8cm/s AO Mean GR.4mmHgAVA (VMAX)3.46cm2 Mitral Valve MV E Lreoswxi15.1cm/sMV DECEL [id number] MV A Noabhspr47.0cm/sE/A Ratio1.0 Pulmonary Valve PV Peak Zfdzfask79.3cm/s LEFT VENTRICLE The left ventricle is normal size. There is borderline to mild concentric left ventricular hypertroph y. The left ventricular systolic function is normal and the ejection fraction is within normal range. Estimated ejection fraction 60%. There is normal LV segmental wall motion. The left ventricular perdomo tolic function and filling is normal for age. RIGHT VENTRICLE The right ventricle is normal size. There is normal right ventricular wall thickness. The right ventr icular systolic function is normal. ATRIA The left atrium size is normal. The right atrium size is normal. The interatrial septum is intact wit h no evidence for an atrial septal defect or patent foramen ovale as noted on 2-D or Doppler imaging. AORTIC VALVE The aortic valve is normal in structure and function. Doppler and Color Flow revealed no significant aortic regurgitation. There is no significant aortic valvular stenosis. MITRAL VALVE The mitral valve is normal in structure and function. There is no evidence of mitral valve prolapse. There is no mitral valve stenosis. Doppler and Color Flow revealed no mitral valve regurgitation note d. TRICUSPID VALVE The tricuspid valve is normal in structure and function. Doppler and Color Flow revealed no tricuspid valve regurgitation noted. There is no tricuspid valve stenosis. PULMONIC VALVE Doppler and Color Flow revealed no pulmonic valvular regurgitation. There is no pulmonic valvular jessica nosis. GREAT VESSELS The aortic root is moderately enlarged. The ascending aorta is mildly dilated at 4.1 cm. The IVC is n ormal in size and collapses >50% with inspiration. PERICARDIAL EFFUSION There is no evidence of significant pericardial effusion. Critical Notification Critical Value: No <Conclusion> The left ventricular systolic function is normal and the ejection fraction is within normal range. E stimated ejection fraction 60%. There is normal LV segmental wall motion. The ascending aorta is mildly dilated at 4.1 cm. Signed by : Gilbert Maciel, Electronically Approved : 01/21/2021 11:00:19
== END ==
LOC: US 12:33
PROVIDERS: ATTEND Internal Medicine Cardiovascular Disease
DX: T14.8XXA Other injury of unspecified body region, initial encounter (principal); L97.829 Non-pressure chronic ulcer of other part of left lower leg with unspecified severity; I10 Essential (primary) hypertension; I51.7 Cardiomegaly
CPT/HCPCS: 93306; 93971

== ENCOUNTER → 2021-02-03 | Outpatient (CLI) | payer OTHER ==
[2020-10-07 14:55] VITALS: BP 156/74
[~2021-02-03] MED LIST changes: +LIDOCAINE 1%/EPI 1:100,000 50 ML, SODIUM BICARBONATE VIAL 5 MEQ in IV NORMAL SALINE 100... SQ ONE
--- NOTE | 2021-02-03 15:10 | CARD ---
MR#: [id number] Date of Study: 02/03/2021 Ordering Physician: REJI NIELSEN, Referring Physician: REJI NIELSEN, Tech: Camille Graff RVT; Amado TAPIA APPROVED REPORT Patient StatusOUT-PATIENT Pie Crimping Machine Operator: Camille Graff RVT; Amado TAPIA Procedure(s) performed: Endovenous radiofrequency ablation of the Right greater saphenous vein. INDICATION FOR PROCEDURE The indication(s) include : Symptomatic Chronic Venous Insufficiency, venous hypertension with inflam mation, non healing wound, Varicose Veins, lower extremity pain and edema. PROCEDURE NARRATIVE The patient was transferred to the procedure suite and the insufficient saphenous vein was mapped by ultrasound and diagrammed on the underlying skin. The depth and diameter of the vein(s) to be treate d was documented. The varicose tributary veins and suitable access sites were identified and mapped as well. The patient was then positioned supine on the procedure table. The entire limb was sterile ly prepared and the lower extremity and treatment table were sterilely draped. The RF catheter was placed on the sterile field, flushed and wiped down, prepared, and connected by a sterile cable. The patient was placed in reverse-Trendelenburg position and local anesthesia was instilled in the sk in overlying the access site. A skin incision was made overlying the identified and mapped greater s aphenous vein entry site. The vein was punctured through the incision and using ultrasound guidance and the Seldinger technique a guide wire was introduced through the needle which was then exchanged o adalberto the guide wire for a 7 F sheath. The guide wire was removed and the sheath was flushed. The RF probe was placed into the vein through the sheath and positioned at a point just distal (about 0.5 to 1 cm) to the entrance point of the superficial epigastric artery using ultrasound guidance. After the RF probe position was verified by the ultrasound, tumescent anesthesia was infiltrated, und er ultrasound guidance, precisely into the perivenuus compartment along the entire length of vein fro m the entry site to the saphenofemoral junction until a "halo" of fluid was noted around the vein. The patient was then placed in Trendelenburg position. After the RF probe position was again confirm ed with ultrasound imaging, moderate external compression was applied over the RF heating element, an d RF energy was applied. The probe was withdrawn sequentially in 6.5 cm steps with slight overlap of 7 cm segments of ablation and monitored to keep the probe temperature at 120 degrees Celsius and the generator output well below its maximum power. Treatment Segments: 12 Total Length: 65 cm. Tot al Ablation time: 3 minutes, 50 secs. Repeat ultrasound of the saphenous vein was performed confirming successful treatment. The catheter and sheath were withdrawn and hemostasis established with direct pressure. After assuring hemostasis , the skin incision over the saphenous vein was closed with a bandage and an external compression josé manuel ssing was applied from the level of the foot to the most proximal level of the thigh. Signed by : Reji Nielsen, Electronically Approved : 02/03/2021 15:09:44
== END ==
LOC: VNUS 13:45
PROVIDERS: ATTEND Internal Medicine Cardiovascular Disease
DX: I87.311 Chronic venous hypertension (idiopathic) with ulcer of right lower extremity (principal); L97.212 Non-pressure chronic ulcer of right calf with fat layer exposed
CPT/HCPCS: 36475; J3490; J7030

== ENCOUNTER → 2021-02-04 | Outpatient (CLI) | payer OTHER ==
[2020-10-07 14:55] VITALS: BP 156/74
[~2021-02-04] MED LIST changes: -LIDOCAINE 1%/EPI 1:100,000 50 ML, SODIUM BICARBONATE VIAL 5 MEQ in IV NORMAL SALINE 100... SQ ONE
--- NOTE | 2021-02-04 15:21 | RAD ---
EXAM: Right lower extremity venous Doppler. HISTORY: Right lower extremity pain/swelling. COMPARISON: None. FINDINGS: Grayscale and Doppler analysis of the right lower extremity deep venous system was performe d with graded compression and augmentation. The common femoral, greater saphenous, superficial femora l, popliteal and calf veins were assessed. There is no evidence of deep venous thrombosis. The greater saphenous vein has been procedurally occl uded. IMPRESSION: 1. Procedural occlusion of the greater saphenous vein. No evidence of deep venous thrombosis. Electronically signed by: Sean Aguilar MD (02/04/2021 3:18 PM) [id number]
== END ==
LOC: US 14:08
PROVIDERS: ATTEND Internal Medicine Cardiovascular Disease
DX: I82.811 Embolism and thrombosis of superficial veins of right lower extremity (principal); I87.323 Chronic venous hypertension (idiopathic) with inflammation of bilateral lower extremity; I10 Essential (primary) hypertension
CPT/HCPCS: 93971